=== PATIENT | female | born 1990 | race Caucasian/White ===

== ENCOUNTER 2023-03-11 15:37 | Emergency (ER) | payer BC, MEDICAID, SELFPAY ==
[2023-03-11 15:44] VITALS: BP 130/83; PULSE 71; RESP 18; TEMP 36.7; O2SAT 98; BMI 26.2
--- NOTE | 2023-03-11 16:15 | ED_ITS ---
Documented by User: MIGUEL Kumar 03/11/23 17:05 HPI - Female Genitourinary 2 General: Chief complaint: Vaginal Bleeding Stated complaint: vag bleeding Time Seen by Provider: 03/11/23 15:44 Source: patient Mode of arrival: ambulatory Limitations: no limitations History of Present Illness: Patient is a 32-year-old female presents to ED today with a complaint of vaginal bleeding that began today. She states bleeding was bright red and small in quantity stating she noticed a small amount in her underwear and slightly more when she wiped. Patient states she is concerned as she is status post hysterectomy several years ago following cervical cancer and abnormal endometrial cells. She states she does still have bilateral ovaries. She complains of lower pelvic pain. She states she never followed up following her hysterectomy because she was nervous/anxious. She has no urinary complaints. Denies vaginal discharge or odor. Last sexual intercourse was a few days ago with her monogamous partner. MD elicited complaint: vaginal bleeding and pelvic pain Pertinent past history: other (cervical/uterine cancer) Onset (ago): hour(s) Severity: mild Vaginal discharge: none Vaginal bleeding: scant Exacerbating factors: none Relieving factors: none Associated symptoms: Deny headache(s), nausea or vaginal discharge Treatment prior to arrival: none Sexual activity: Yes Patient : No Review of Systems 2 Const: Denies: fever(s), chills, body aches, fatigue or malaise Card: Denies: chest pain Resp: Denies: dyspnea GI: Denies: nausea, vomiting or diarrhea : Reports: vaginal bleeding and pelvic pain; Denies: flank pain, difficulty voiding, dysuria, urinary frequency, urinary urgency, urinary hesitancy, vaginal odor or vaginal discharge Musc: Denies: neck pain, back pain, extremity pain or joint pain Skin/Breast: Denies: rash Neuro: Denies: headache(s), numbness in extremities, weakness in extremities or sensory changes Physical Exam 2 Const: COMMON NORMALS: no acute distress, patient oriented x3, no limitations, alert and well nourished GENERAL APPEARANCE: cooperative and anxious O RIENTATION/CONSCIOUSNESS: Yes awake, Yes oriented to person, Yes oriented to place and Yes oriented to time Resp: COMMON NORMALS: normal respiratory effort and clear to auscultation bilaterally AUSCULTATION: clear to auscultation bilaterally Cardio: COMMON NORMALS: regular rate and regular rhythm RATE: regular rate RHYTHM: regular rhythm GI: COMMON NORMALS: Normal to inspection, nondistended, normoactive bowel sounds present, Soft to palpation, No hepatosplenomegaly present and no masses INSPECTION: Yes normal to inspection AUSCULTATION: Yes normoactive bowel sounds PALPATION: Yes Soft to palpation, Yes Tenderness to palpation present (GI) (lower pelvis-she states some of this is chronic), No Guarding due to palpation present (GI), No Rigid due to palpation and Yes No hepatosplenomegaly present : COMMON NORMALS: Yes no CVA tenderness and Yes normal external appearance BLADDER/KIDNEY EXAM: Yes no CVA tenderness EXTERNAL FEMALE EXAM: Yes normal appearance of the urethra SPECULUM EXAM - CERVIX: Yes Cervix absent Back/Pelvis: COMMON NORMALS: no CVA tenderness Neuro: COMMON NORMALS: patient oriented x3 SENSORIUM/ORIENTATION: Yes alert, Yes oriented to person, Yes oriented to place and Yes oriented to time Course 2 Vital Signs: Vital signs: Vital Signs Temperature 98.1 F 03/11/23 15:44 Pulse Rate 82 03/11/23 17:36 Respiratory Rate 18 03/11/23 15:44 Blood Pressure 103/76 03/11/23 17:36 Pulse Oximetry 97 03/11/23 17:36 Oxygen Delivery Me thod Room Air 03/11/23 17:36 MDM - Female Lab Data 03/11/23 16:37 03/11/23 16:37 Radiology Impressions Transvaginal US 03/11/23 16:16 IMPRESSION: Prior hysterectomy. No abnormalities detected. Laboratory Results WBC 7.98 10^3/uL (3.29-11.43) 03/11/23 16:37 RBC 4.58 10^6/uL (3.85-5.65) 03/11/23 16:37 Hgb 14.50 g/dL (11.27-16.99) 03/11/23 16:37 Hct 42.2 % (36-47) 03/11/23 16:37 MCV 92.1 fl (85-98) 03/11/23 16:37 MCH 31.7 pg (27-33) 03/11/23 16:37 MCHC 34.4 g/dL (30-55) 03/11/23 16:37 RDW 11.6 % (12.1-15.1) L 03/11/23 16:37 Plt Count 272 10^3/cmm (157-399) 03/11/23 16:37 MPV 9.0 fL (7.4-10.4) 03/11/23 16:37 Neut % (Auto) 65.5 % 03/11/23 16:37 Lymph % (Auto) 22.8 % 03/11/23 16:37 Liberty % (Auto) 9.1 % 03/11/23 16:37 Eos % (Auto) 1.4 % 03/11/23 16:37 Baso % (Auto) 0.8 % 03/11/23 16:37 Neut # (Auto) 5.23 10^3/uL (1.8-7.7) 03/11/23 16:37 Lymph # (Auto) 1.8 10^3/uL (0.8-4.8) 03/11/23 16:37 Liberty # (Auto) 0.7 10^3/uL (0.2-0.9) 03/11/23 16:37 Eos # (Auto) 0.1 10^3/uL (0.0-0.8) 03/11/23 16:37 Baso # (Auto) 0.1 10^3/uL (0.0-0.1) 03/11/23 16:37 Nucleated RBC % (auto) 0 % 03/11/23 16:37 Nucleated RBCs # 0.0 /100WBC 03/11/23 16:37 Sodium 140 mmol/L (136-145) 03/11/23 16:37 Potassium 4.1 mmol/L (3.5-5.1) 03/11/23 16:37 Chloride 106 mmol/L (98-107) 03/11/23 16:37 Carbon Dioxide 26 mmol/L (22-29) 03/11/23 16:37 Anion Gap 12.1 (5-19) 03/11/23 16:37 BUN 11 mg/dL (6-20) 03/11/23 16:37 Creatinine 0.7 mg/dL (0.5-0.9) 03/11/23 16:37 GFR Calculation 95.8 mL/min (90-130) 03/11/23 16:37 Glucose 96 mg/dL (65-115) 03/11/23 16:37 Calculated Osmolality 289 mOsm/kg (285-295) 03/11/23 16:37 Calcium 9.2 mg/dL (8.5-10.5) 03/11/23 16:37 Total Bilirubin 0.5 mg/dL (0.15-1.2) 03/11/23 16:37 AST 17 U/L (0-32) 03/11/23 16:37 ALT 10 U/L (0-33) 03/11/23 16:37 Alkaline Phosphatase 60 U/L (35-105) 03/11/23 16:37 Total Protein 7.5 g/dL (6.6-8.7) 03/11/23 16:37 Albumin 4.7 g/dL (3.5-5.2) 03/11/23 16:37 Globulin 2.8 g/dL (1.3-4.6) 03/11/23 16:37 Urine Color Yellow (Yellow) 03/11/23 16:20 Urine Appearance Sl hazy (CLEAR) A 03/11/23 16:20 Urine pH 6 (5-7) 03/11/23 16:20 Ur Specific [place] 1.030 (1.005-1.030) 03/11/23 16:20 Urine Protein Neg (Negative) 03/11/23 16:20 Urine Glucose (UA) Norm (Normal) 03/11/23 16:20 Urine Ketones 1+ (Negative) H 03/11/23 16:20 Urine Blood 2+ (Negative) H 03/11/23 16:20 Urine Nitrate Negative (Negative) 03/11/23 16:20 Urine Bilirubin Neg (Negative) 03/11/23 16:20 Urine Urobilinogen Norm mg/dL (Negative) 03/11/23 16:20 Ur Leukocyte Esterase Negative (Negative) 03/11/23 16:20 Urine RBC 0-4 /hpf (0-2) H 03/11/23 16:20 Urine WBC 0-4 /hpf (0-5) H 03/11/23 16:20 Ur Squamous Epith Cells 5-10 /hpf (0-5) H 03/11/23 16:20 Ur Transition Epith Cell 0-4 /hpf 03/11/23 16:20 Calcium Oxalate Crystal 0-4 /hpf H 03/11/23 16:20 Amorphous Sediment Not Reportable 03/11/23 16:20 Urine Bacteria Trace /hpf (NONE) 03/11/23 16:20 Urine Mucus 1+ /hpf 03/11/23 16:20 Discharge Plan Discharge Patient Disposition: Home Clinical Impression: Vaginal bleeding, Bacterial vaginosis Condition: Stable Prescriptions: New metronidazole 500 mg tablet 500 mg PO BID 7 Days Qty: 14 0RF No Action multivitamin Tablet 1 tab PO DAILY PRN (Reason: unknown) sumatriptan succinate 100 mg tablet See Rx Instructions .ROUTE .COMPLEX Rx Instructions: TAKE ONE TABLET BY MOUTH TWICE DAILY AT LEAST TWO HOURS BETWEEN DOSES NEEDED levothyroxine 25 mcg tablet 25 mcg PO QAM alprazolam [Xanax] 0.5 mg Tablet 0.5 mg PO BID PRN (Reason: Anxiety) lactase [Lactaid] 3,000 unit Tablet 3,000 unit PO QID PRN (Reason: UNKNOWN) Rx Instructions: administer with meals and/or snacks epinephrine [EpiPen 2-Олег] 0.3 mg/0.3 mL Auto-Injector 0.3 mg IM . DIRECTED PRN (Reason: Allergic Reaction) Discharge Orders: Discharge ED (Routine); Ordered 03/11/23 Ordered By: Darin Roland Referrals: Dawood Rolon MD [Physician] - Patient Instructions: Bacterial Vaginosis (ED) Activity Restrictions/Additional Instructions: A referral was sent to [facility]. Number and address provided in discharge paperwork, call tomorrow to schedule appointment for further management/evaluation. It appears that you have bacterial vaginosis. A prescription of metronidazole was sent to your pharmacy to be picked up. Take medication as prescribed. First dose given in the emergency department. See handout over generalize instructions. Increase oral hydration. Tylenol and ibuprofen as needed for pain. Call your primary care provider tomorrow with an update of your symptoms and schedule appointment for further management/evaluation. Return to the emergency department for any rapid or worsening symptoms to include but not limited to increased vaginal bleeding, chest pain, shortness of breath, lightheadedness, dizziness, abdominal pain, nausea, vomiting, or as needed. Sign Out Sign Out Data: Patient Sign Out occurred on 03/11/23 at 17:10. Patient's care was discussed, and care was transferred from MIGUEL Kumar to MIGUEL Gonzalez. Coding Level of Care Code ED Sliver Lap Tender for Chg Fwd Documented by User: MIGUEL Gonzalez 03/11/23 17:58 HPI - Female Genitourinary 2 General: Chief complaint: Vaginal Bleeding Stated complaint: vag bleeding Time Seen by Provider: 03/11/23 15:44 Course 2 Vital Signs: Vital signs: Vital Signs Temperature 98.1 F 03/11/23 15:44 Pulse Rate 82 03/11/23 17:36 Respiratory Rate 18 03/11/23 15:44 Blood Pressure 103/76 03/11/23 17:36 Pulse Oximetry 97 03/11/23 17:36 Oxygen Delivery Me thod Room Air 03/11/23 17:36 MDM - Female Medical Decision Making This patient was taken over from Miracle Alamo PA-C. Patient is a 32-year-old female presents to ED today with a complaint of vaginal bleeding that began today. On physical examination patient is nontoxic and in no acute distress. Vital signs remained stable throughout the ED course. Patient is afebrile. Patient is neurovascular intact. Patient is hemodynamically stable. CBC showed no evidence of anemia or leukocytosis. CMP unremarkable. Urinalysis showed 1+ ketones, 2+ blood, 0-4 red blood cells, 0-4 white blood cells, and 5-10 epithelial cells. Patient denies any urinary symptoms at this time. Urine likely contaminated. I do not think urinary tract infection is likely at this time. Wet prep was positive for clue cells. I will treat for bacterial vaginosis and have the patient follow-up with [facility]. A referral was sent to [facility]. Number and address provided in discharge paperwork, call tomorrow to schedule appointment for further management/evaluation. It appears that you have bacterial vaginosis. A prescription of metronidazole was sent to your pharmacy to be picked up. Take medication as prescribed. First dose given in the emergency department. See handout over generalize instructions. Increase oral hydration. Tylenol and ibuprofen as needed for pain. Call your primary care provider tomorrow with an update of your symptoms and schedule appointment for further management/evaluation. Return to the emergency department for any rapid or worsening symptoms to include but not limited to increased vaginal bleeding, chest pain, shortness of breath, lightheadedness, dizziness, abdominal pain, nausea, vomiting, or as needed. Patient stated understanding of all discharge instructions was agreeable to plan of care. Differential diagnosis includes but is not limited to ovarian torsion, vaginal Adeline, atrophic vaginitis, bacterial vaginosis, trichomonas, urinary tract infection Lab Data 03/11/23 16:37 03/11/23 16:37 Radiology Impressions Transvaginal US 03/11/23 16:16 IMPRESSION: Prior hysterectomy. No abnormalities detected. Laboratory Results WBC 7.98 10^3/uL (3.29-11.43) 03/11/23 16:37 RBC 4.58 10^6/uL (3.85-5.65) 03/11/23 16:37 Hgb 14.50 g/dL (11.27-16.99) 03/11/23 16:37 Hct 42.2 % (36-47) 03/11/23 16:37 MCV 92.1 fl (85-98) 03/11/23 16:37 MCH 31.7 pg (27-33) 03/11/23 16:37 MCHC 34.4 g/dL (30-55) 03/11/23 16:37 RDW 11.6 % (12.1-15.1) L 03/11/23 16:37 Plt Count 272 10^3/cmm (157-399) 03/11/23 16:37 MPV 9.0 fL (7.4-10.4) 03/11/23 16:37 Neut % (Auto) 65.5 % 03/11/23 16:37 Lymph % (Auto) 22.8 % 03/11/23 16:37 Liberty % (Auto) 9.1 % 03/11/23 16:37 Eos % (Auto) 1.4 % 03/11/23 16:37 Baso % (Auto) 0.8 % 03/11/23 16:37 Neut # (Auto) 5.23 10^3/uL (1.8-7.7) 03/11/23 16:37 Lymph # (Auto) 1.8 10^3/uL (0.8-4.8) 03/11/23 16:37 Liberty # (Auto) 0.7 10^3/uL (0.2-0.9) 03/11/23 16:37 Eos # (Auto) 0.1 10^3/uL (0.0-0.8) 03/11/23 16:37 Baso # (Auto) 0.1 10^3/uL (0.0-0.1) 03/11/23 16:37 Nucleated RBC % (auto) 0 % 03/11/23 16:37 Nucleated RBCs # 0.0 /100WBC 03/11/23 16:37 Sodium 140 mmol/L (136-145) 03/11/23 16:37 Potassium 4.1 mmol/L (3.5-5.1) 03/11/23 16:37 Chloride 106 mmol/L (98-107) 03/11/23 16:37 Carbon Dioxide 26 mmol/L (22-29) 03/11/23 16:37 Anion Gap 12.1 (5-19) 03/11/23 16:37 BUN 11 mg/dL (6-20) 03/11/23 16:37 Creatinine 0.7 mg/dL (0.5-0.9) 03/11/23 16:37 GFR Calculation 95.8 mL/min (90-130) 03/11/23 16:37 Glucose 96 mg/dL (65-115) 03/11/23 16:37 Calculated Osmolality 289 mOsm/kg (285-295) 03/11/23 16:37 Calcium 9.2 mg/dL (8.5-10.5) 03/11/23 16:37 Total Bilirubin 0.5 mg/dL (0.15-1.2) 03/11/23 16:37 AST 17 U/L (0-32) 03/11/23 16:37 ALT 10 U/L (0-33) 03/11/23 16:37 Alkaline Phosphatase 60 U/L (35-105) 03/11/23 16:37 Total Protein 7.5 g/dL (6.6-8.7) 03/11/23 16:37 Albumin 4.7 g/dL (3.5-5.2) 03/11/23 16:37 Globulin 2.8 g/dL (1.3-4.6) 03/11/23 16:37 Urine Color Yellow (Yellow) 03/11/23 16:20 Urine Appearance Sl hazy (CLEAR) A 03/11/23 16:20 Urine pH 6 (5-7) 03/11/23 16:20 Ur Specific [place] 1.030 (1.005-1.030) 03/11/23 16:20 Urine Protein Neg (Negative) 03/11/23 16:20 Urine Glucose (UA) Norm (Normal) 03/11/23 16:20 Urine Ketones 1+ (Negative) H 03/11/23 16:20 Urine Blood 2+ (Negative) H 03/11/23 16:20 Urine Nitrate Negative (Negative) 03/11/23 16:20 Urine Bilirubin Neg (Negative) 03/11/23 16:20 Urine Urobilinogen Norm mg/dL (Negative) 03/11/23 16:20 Ur Leukocyte Esterase Negative (Negative) 03/11/23 16:20 Urine RBC 0-4 /hpf (0-2) H 03/11/23 16:20 Urine WBC 0-4 /hpf (0-5) H 03/11/23 16:20 Ur Squamous Epith Cells 5-10 /hpf (0-5) H 03/11/23 16:20 Ur Transition Epith Cell 0-4 /hpf 03/11/23 16:20 Calcium Oxalate Crystal 0-4 /hpf H 03/11/23 16:20 Amorphous Sediment Not Reportable 03/11/23 16:20 Urine Bacteria Trace /hpf (NONE) 03/11/23 16:20 Urine Mucus 1+ /hpf 03/11/23 16:20 All radiology interpretation(s) finalized by discharge Discharge Plan Discharge Patient Disposition: Home Clinical Impression: Vaginal bleeding, Bacterial vaginosis Condition: Stable Prescriptions: New metronidazole 500 mg tablet 500 mg PO BID 7 Days Qty: 14 0RF No Action multivitamin Tablet 1 tab PO DAILY PRN (Reason: unknown) sumatriptan succinate 100 mg tablet See Rx Instructions .ROUTE .COMPLEX Rx Instructions: TAKE ONE TABLET BY MOUTH TWICE DAILY AT LEAST TWO HOURS BETWEEN DOSES NEEDED levothyroxine 25 mcg tablet 25 mcg PO QAM alprazolam [Xanax] 0.5 mg Tablet 0.5 mg PO BID PRN (Reason: Anxiety) lactase [Lactaid] 3,000 unit Tablet 3,000 unit PO QID PRN (Reason: UNKNOWN) Rx Instructions: administer with meals and/or snacks epinephrine [EpiPen 2-Олег] 0.3 mg/0.3 mL Auto-Injector 0.3 mg IM . DIRECTED PRN (Reason: Allergic Reaction) Discharge Orders: Discharge ED (Routine); Ordered 03/11/23 Ordered By: Darin Roland Referrals: Dawood Rolon MD [Physician] - Patient Instructions: Bacterial Vaginosis (ED) Activity Restrictions/Additional Instructions: A referral was sent to [facility]. Number and address provided in discharge paperwork, call tomorrow to schedule appointment for further management/evaluation. It appears that you have bacterial vaginosis. A prescription of metronidazole was sent to your pharmacy to be picked up. Take medication as prescribed. First dose given in the emergency department. See handout over generalize instructions. Increase oral hydration. Tylenol and ibuprofen as needed for pain. Call your primary care provider tomorrow with an update of your symptoms and schedule appointment for further management/evaluation. Return to the emergency department for any rapid or worsening symptoms to include but not limited to increased vaginal bleeding, chest pain, shortness of breath, lightheadedness, dizziness, abdominal pain, nausea, vomiting, or as needed. Sign Out Sign Out Data: Patient Sign Out occurred on 03/11/23 at 17:10. Patient's care was discussed, and care was transferred from MIGUEL Kumar to MIGUEL Gonzalez. Coding Level of Care Code ED Sliver Lap Tender for Antonio Tsai
--- NOTE | 2023-03-11 16:16 | USR_ITS ---
PROCEDURE INFORMATION: Exam: US Pelvis, Transvaginal Exam date and time: 03/11/2023 4:45 PM Age: 32 years old Clinical indication: Pelvic pain; Prior surgery; Surgery date: 6+ months; Surgery type: Hysterectomy; Additional info: Pelvic pain/vag bleeding; Sp hysterectomy LABS AND CLINICAL REPORTS: Last menstrual period start date: Unknown TECHNIQUE: Imaging protocol: Real-time transvaginal pelvic ultrasound with image documentation. Transvaginal imaging was used for better evaluation of the endometrium, adnexa, and/or cervix. COMPARISON: No relevant prior studies available. FINDINGS: Uterus has been removed. No mass or fluid collection within the cul-de-sac. Right ovary is unremarkable. No adnexal mass. Normal Doppler flow. Left ovary is unremarkable. No adnexal mass. Normal Doppler flow. US/US transvaginal [id number] IMPRESSION: Prior hysterectomy. No abnormalities detected.
[2023-03-11 16:46] VITALS: BP 117/76; PULSE 73; O2SAT 97
[2023-03-11 16:47] LABS: Basophils # 0.1 10^3/uL (0.0-0.1); Basophils % 0.8 %; Eosinophils # 0.1 10^3/uL (0.0-0.8); Eosinophils % 1.4 %; Hematocrit 42.2 % (36-47); Lymphocytes # 1.8 10^3/uL (0.8-4.8); Lymphocytes % 22.8 %; Mean Corpuscular HGB Conc 34.4 g/dL (30-55); Mean Corpuscular Hemoglobin 31.7 pg (27-33); Mean Corpuscular Volume 92.1 fl (85-98); Monocytes # 0.7 10^3/uL (0.2-0.9); Monocytes % 9.1 %; Neutrophils # 5.23 10^3/uL (1.8-7.7); Neutrophils % 65.5 %; Nucleated Red Blood Cells % 0 %; Platelet Count 272 10^3/cmm (157-399); Red Blood Count 4.58 10^6/uL (3.85-5.65); Red Cell Distribution Width 11.6 % (12.1-15.1); White Blood Count 7.98 10^3/uL (3.29-11.43)
[2023-03-11 16:52] LABS: Add Urine Microscopic? YES; Bilirubin Urine Neg (Negative); Blood Urine 2+ (Negative); Glucose Urine UA Norm (Normal); Ketones Urine 1+ (Negative); Leukocyte Esterase Urine Negative (Negative); Nitrate Urine Negative (Negative); Protein Urine Neg (Negative); Urine Appearance SL Hazy (CLEAR); Urine Color Yellow (Yellow); Urobilinogen Urine Norm (Negative); pH Urine 6 (5-7)
[2023-03-11 17:05] LABS: Alanine Aminotransferase 10 U/L (0-33); Albumin Level 4.7 g/dL (3.5-5.2); Alkaline Phosphatase 60 U/L (35-105); Anion Gap 12.1 (5-19); Aspartate Amino Transferase 17 U/L (0-32); Blood Urea Nitrogen 11 mg/dL (6-20); Calcium 9.2 mg/dL (8.5-10.5); Carbon Dioxide 26 mmol/L (22-29); Chloride 106 mmol/L (98-107); Creatinine Clr Calc Pharmacy 136.9198; Globulin 2.8 g/dL (1.3-4.6); Glomerular Filtration Rate 95.8 mL/min (90-130); Glucose 96 mg/dL (65-115); Osmolality Calculated 289 mOsm/kg (285-295); Potassium 4.1 mmol/L (3.5-5.1); Sodium 140 mmol/L (136-145); Total Bilirubin 0.5 mg/dL (0.15-1.2); Total Protein 7.5 g/dL (6.6-8.7)
[2023-03-11 17:05] LABS: Bacteria Urine TRACE /hpf; Mucus Urine 1+ /hpf; RBC Urine 0-4 /hpf (0-2); Transitional Epi Cells Urine 0-4 /hpf; WBC Urine 0-4 /hpf (0-5)
[2023-03-11 17:06] LABS: Add Urine Culture? No; Calcium Oxalate Crystals Urine 0-4 /hpf
[2023-03-11 17:28] VITALS: BP 109/71; PULSE 69; O2SAT 97
[2023-03-11 17:36] VITALS: BP 103/76; PULSE 82; O2SAT 97
[2023-03-11] MEDS: acetaminophen 325 mg Tablet 650 MG PO (17:37)
[2023-03-11] MEDS: metroNIDAZOLE 500 MG Tablet PO (17:53)
[2023-03-11 17:56] VITALS: BP 101/65; PULSE 70; O2SAT 95
--- NOTE | 2023-03-11 17:59 | DCPLANNER ---
Referral was sent to [facility] on 03/11/23 at 0296. Clinic to contact patient.
== END 2023-03-11 18:04 | disposition home or self-care (01) ==
PROVIDERS: Physician Assistant; Emergency Provider Physician Assistant
DX: N93.9 Abnormal uterine and vaginal bleeding, unspecified (principal); N76.0 Acute vaginitis; Z90.710 Acquired absence of both cervix and uterus; Z85.41 Personal history of malignant neoplasm of cervix uteri
CPT/HCPCS: 76830; 80053; 81001; 85025; 87210; 99284; E0352

== ENCOUNTER → 2023-04-02 11:36 | Outpatient (BNVA) | payer BC, MEDICAID, SELFPAY | PROVIDERS: Visit Provider Nurse Practitioner Women's Health | DX: R30.0 Dysuria (principal); N93.9 Abnormal uterine and vaginal bleeding, unspecified | CPT/HCPCS: 84315; 87624 ==

== ENCOUNTER 2023-12-17 09:19 | Outpatient (CLI) | payer BC, MEDICAID, SELFPAY ==
--- NOTE | 2023-12-17 09:31 | XRR_ITS ---
PROCEDURE INFORMATION: Exam: XR Right Shoulder Exam date and time: 12/17/2023 9:41 AM Age: 33 years old Clinical indication: Pain; Shoulder; Right; Additional info: Right shoulder pain TECHNIQUE: Imaging protocol: Radiologic exam of the right shoulder. Views: 2 or more views. COMPARISON: No relevant prior studies available. FINDINGS: Bones/joints: Normal. No fracture or dislocation. No acute osseous or joint abnormality. Soft tissues: Normal. XR/XR shoulder RT min 2V* [id number] IMPRESSION: No acute findings.
== END 2023-12-17 09:20 | disposition home or self-care (01) ==
LOC: RAD 09:24
PROVIDERS: Visit Provider Family Medicine
DX: M25.511 Pain in right shoulder (principal)
CPT/HCPCS: 73030

== ENCOUNTER 2024-02-25 14:05 | Outpatient (CLI) | payer BC, MEDICAID, SELFPAY ==
--- NOTE | 2024-02-25 14:08 | MRR_ITS ---
PROCEDURE INFORMATION: Exam: MR Right Upper Extremity Joint Without Contrast; Shoulder Exam date and time: 02/25/2024 2:24 PM Age: 33 years old Clinical indication: Patient HX: Chronic right shoulder pain, limited motion; Additional info: R shoulder pain TECHNIQUE: Imaging protocol: Magnetic resonance imaging of the right upper extremity without contrast. Exam focused on the shoulder. COMPARISON: CR XR shoulder RT min 2V* [id number] 12/17/2023 9:41 AM FINDINGS: Bones/joints: Unremarkable. No bone abnormalities. Articular cartilage normal. No joint effusion. Glenoid labrum: Unremarkable. No evidence of tear. Bursae: Small amount of fluid in the subacromial/subdeltoid bursa. Supraspinatus tendon: Unremarkable. No evidence of tear. Infraspinatus tendon: Unremarkable. No evidence of tear. Subscapularis tendon: Unremarkable. No evidence of tear. Teres minor tendon: Unremarkable. No evidence of tear. Tendon of biceps brachii: Unremarkable. No evidence of tear. Glenohumeral ligaments: Unremarkable. Soft tissues: Unremarkable. MR/MR shoulder RT wo con* [id number] IMPRESSION: 1. Small amount of fluid in the subacromial/subdeltoid bursa. This could represent mild bursitis. 2. No rotator cuff tear visualized.
== END 2024-02-25 14:06 | disposition home or self-care (01) ==
LOC: RAD 14:06
PROVIDERS: PCP Family Medicine; Visit Provider Family Medicine
DX: M75.51 Bursitis of right shoulder (principal)
CPT/HCPCS: 73221

== ENCOUNTER → 2024-04-08 10:09 | Outpatient (BNVA) | payer BC, MEDICAID, SELFPAY | PROVIDERS: PCP Family Medicine; Visit Provider Nurse Practitioner | DX: M25.511 Pain in right shoulder (principal); M75.51 Bursitis of right shoulder; M75.41 Impingement syndrome of right shoulder; M75.21 Bicipital tendinitis, right shoulder | CPT/HCPCS: 73030 ==